=== PATIENT | female | born 2000 | race Caucasian/White ===

== ENCOUNTER 2022-07-21 03:16 | Emergency (ER) | payer MEDICARE, OTHER ==
[~2022-07-21] VITALS: Ht 152.4 cm; Wt 89.4 kg
[2022-07-21] MEDS ORDERED: TDAP DIPH,PERTUSS,TET VAC/PF 0.5 ML DISP.SYRIN IM ONE ×2 (03:45→03:53)
[2022-07-21] MEDS ORDERED: LORAZEPAM 2 MG/1 ML VIAL IV ONE (03:45)
[2022-07-21] MEDS ORDERED: PENICILLIN G BENZATHINE 2.4 MMU/4 ML DISP.SYRIN IM ONE ×2 (03:45→03:53)
[2022-07-21] MEDS ORDERED: levETIRAcetam IV 500 MG in IV DEXTROSE 5% 100 ML IV ONE (03:45)
[2022-07-21] MEDS ORDERED: OLAN5TAB70 PO (03:46)
[2022-07-21] MEDS ORDERED: SERT25TA PO (03:46)
[2022-07-21] MEDS ORDERED: LORA-259 PO (03:48)
[2022-07-21] MEDS ORDERED: TEMA15CA PO (03:48)
[2022-07-21] MEDS ORDERED: ONDA4TAB11 PO (03:48)
[2022-07-21] MEDS ORDERED: ACET-2154 PO (03:48)
[2022-07-21] MEDS ORDERED: levETIRAcetam 500 MG/5 ML VIAL IV ONE (03:52)
[2022-07-21] MEDS ORDERED: LORAZEPAM 2 MG/1 ML VIAL ONE (03:55)
[2022-07-21 03:57] LABS: HEMATOCRIT 28.2 % (31.2-41.9); MEAN CORPUSCULAR VOLUME 67.8 fL (75.5-95.3); PLATELET COUNT (AUTO) 872 K/uL (179-408)
[2022-07-21 04:15] LABS: CARBON DIOXIDE 24 mmol/L (21-32); CHLORIDE 103 mmol/L (98-107); CREATININE 0.7 mg/dL (0.6-1.3); GLUCOSE 106 mg/dL (74-106); POTASSIUM 3.2 mmol/L (3.5-5.1); UREA NITROGEN, BLOOD 8 mg/dL (7-18)
[2022-07-21 04:20] LABS: ALANINE AMINOTRANSFERASE 55 U/L (14-59); ALKALINE PHOSPHATASE 96 U/L (50-136); ASPARTATE AMINOTRANSFERASE 24 U/L (15-37); BILIRUBIN,DIRECT 0.1 mg/dL (0.0-0.2); BILIRUBIN,TOTAL 0.2 mg/dL (0.2-1.0); TOTAL PROTEIN, SERUM 8.1 g/dL (6.4-8.2)
[2022-07-21 04:23] LABS: ACETAMINOPHEN < 2.0 ug/mL (10-30); THYROID STIMULATING HORMONE 3.715 mIU/mL (0.358-3.740)
[2022-07-21 04:29] LABS: ETHANOL < 3 MG/DL (0-0)
[2022-07-21] MEDS ORDERED: POTASSIUM CHLORIDE 20 MEQ TAB.PRT.SR PO ONE (05:30)
[2022-07-21] MEDS ORDERED: LEVE500T9 PO (05:51)
[2022-07-21] MEDS ORDERED: POTASSIUM CHLORIDE 20 MEQ TAB.PRT.SR ONE (06:55)
--- NOTE | 2022-07-21 07:11 | NUR ---
Gave report to Benito RECINOS.
--- NOTE | 2022-07-21 11:07 | NUR ---
After several attempts , finally obtained urine sample and took to the lab.
[2022-07-21 11:13] LABS: *BILIRUBIN,URIN NEGATIVE (NEGATIVE); *BLOOD, URINE NEGATIVE (NEGATIVE); *CLARITY,URINE CLOUDY (CLEAR); *COLOR,URINE YELLOW (YELLOW); *KETONES,URINE NEGATIVE (NEGATIVE); *URINE HCG, QUAL NEG (NEGATIVE); *UROBILINOGEN,URINE 0.2 E.U./dl (NORMAL); LEUKOCYTE ESTERASE ,URINE TRACE (NEGATIVE); NITRITE, URINE NEGATIVE (NEGATIVE); UGLUCOSE NEGATIVE (NEGATIVE)
[2022-07-21] MEDS ORDERED: IV NORMAL SALINE 500 ML BAG IV ONE ×2 (11:30→12:30)
[2022-07-21 11:42] LABS: *AMPHETAMINE, URINE NEGATIVE (NEGATIVE); *CANNABINOID, URINE NEGATIVE (NEGATIVE); *COCCAINE, URINE NEGATIVE (NEGATIVE); *PHENCYCLIDINE SCREEN,URINE NEGATIVE (NEGATIVE)
[2022-07-21 13:00] LABS: BACTERIA,URINE FEW /HPF (NONE SEEN); RBC,URINE NONE SEEN /HPF (0-3); SQUAMOUS EPITHELIAL CELL,UR MODERATE /HPF (NONE SEEN); WBC,URINE 0-3 /HPF (0-3)
--- NOTE | 2022-07-21 15:33 | NUR ---
JONNY consult requested for a patient in the ER for a voluntary admission to [facility]. Patient is alert and oriented X4 and presents with depressed mood and congruent affect. Patient states she does not have a primary contact. Patient states she lives with her sister, Emilia at [address] , [place] [address]. Patient states she is unemployed and not driving. Patient denies a history of substance abuse and the toxicology report is negative. Patient states she has a history of depression and sees a therapist, Lisa, daily and takes Zoloft. Patient denies suicidal or homicidal ideation. Patient states she is open to going back to [facility] and JONNY faxed the patient's facesheet and clinical information to [phone]. JONNY informed patient's nurse, Benito, charge nurse, Lee, and Dr. Headley.
[2022-07-21] MEDS ORDERED: IV NORMAL SALINE 250 ML IV ONE (16:01)
[2022-07-21] MEDS ORDERED: SWABABLE VALVE TRANSFER SET EA MC ONE (16:01)
[2022-07-21] MEDS ORDERED: IOHEXOL 350 100 ML INFUS..BTL ONE (16:01)
--- NOTE | 2022-07-21 16:17 | NUR ---
JONNY spoke with Sarwat from [facility] and he states patient is accepted and accepting Doctor is Dr. Mejia. Sarwat states that he will set up transportation for the patient and JONNY informed nurse Benito, charge nurse, Lee and Dr. Headley.
--- NOTE | 2022-07-21 17:35 | NUR ---
Gave pt RX and d/c instructions, pt verbalized understanding. Transferring staff from [facility] -- Tobin Moore took charge of d/c paperwoork and escorted pt out for transport.
== END 2022-07-21 17:20 ==
LOC: ER 03:27
DX: R56.9 Unspecified convulsions (principal); S01.511A Laceration without foreign body of lip, initial encounter; X58.XXXA Exposure to other specified factors, initial encounter; Y92.239 Unspecified place in hospital as the place of occurrence of the external cause; R55 Syncope and collapse; Z59.00 Homelessness unspecified; F32.A Depression, unspecified; F10.20 Alcohol dependence, uncomplicated; R94.31 Abnormal electrocardiogram [ECG] [EKG]; Z20.822 Contact with and (suspected) exposure to COVID-19
CPT/HCPCS: 80076; 80048; 81001; 84703; 84443; 85025; 85379; 87426; 36415; 93005; 70450; 71275; 90715; 99285; 96361; 96374; 96375; 96372; 90471; 80299; 80320; 80307; J1953 ×2; J2060; Q9967; J0561; J7040; A4663; G0480